=== PATIENT | female | born 1955 | race Caucasian/White ===

== ENCOUNTER 2017-12-31 13:15 | Inpatient (IN) | payer MEDICARE ==
[2017-12-31 13:32] VITALS: BMI 31.9
[2017-12-31] MEDS ORDERED: Sodium Chloride 0.9% 1,000 ML IV ONE (13:50)
[2017-12-31 14:17] LABS: BASO % 0.4 % (0.0-2.0); EOS # 0.2 K/uL (0.0-0.7); EOS % 1.5 % (0.0-4.0); HEMOGLOBIN 14.6 g/dL (11.0-16.0); LYMPH # 2.8 K/uL (1.0-4.3); LYMPH % 23.2 % (20.0-40.0); MEAN CELL VOLUME 88.4 fL (81.0-99.0); MEAN CORPUSCULAR HEMOGLOBIN 30.1 pg (27.0-31.0); MONO # 0.5 K/uL (0.0-0.8); MONO % 4.2 % (0.0-10.0); NEUT # 8.6 K/uL (1.8-7.0); NEUT % 70.7 % (50.0-75.0); NRBC % 0.1 % (0.0-2.0); RBC 4.85 Mil/uL (3.80-5.20); WHITE BLOOD COUNT 12.1 K/uL (4.8-10.8)
[2017-12-31 14:30] LABS: SQUAMOUS EPITHIAL 1 /hpf (0-5); URINE BACTERIA OCC (<OCC); URINE BILIRUBIN NEGATIVE (NEGATIVE); URINE BLOOD NEGATIVE (NEGATIVE); URINE CLARITY Hazy (Clear); URINE COLOR Yellow (YELLOW); URINE GLUCOSE (UA) 3+ mg/dL (Normal); URINE LEUKOCYTE ESTERASE 2+ Leu/uL (Negative); URINE PROTEIN 1+ mg/dL (NEGATIVE); URINE UROBILINOGEN NORMAL mg/dL (0.2-1.0)
[2017-12-31 14:33] LABS: ALB/GLOB RATIO 1.1 (1.0-2.1); ALBUMIN 4.4 g/dL (3.5-5.0); ALT/SGPT 16 U/L (9-52); AST/SGOT 21 U/L (14-36); BLOOD UREA NITROGEN 12 mg/dL (7-17); CALCIUM 9.7 mg/dl (8.6-10.4); GFR NON-AFRICAN AMERICAN > 60; LIPASE 962 U/L (23-300)
--- NOTE | 2017-12-31 14:40 | C.PDOC ---
History Of Present Illness 62-year-old female, presents to the emergency department with complaints of upper abdominal pain associated with vomiting. Patient states she was initially experiencing cough and cold symptoms. No fever. Time Seen by Provider: 12/31/17 13:35 Chief Complaint (Nursing): Abdominal Pain History Per: Patient History/Exam Limitations: no limitations Onset/Duration Of Symptoms: Days Current Symptoms Are (Timing): Still Present Severity: Moderate Location Of Pain/Discomfort: Epigastric Radiation Of Pain To:: Back Quality Of Discomfort: Dull, Aching Associated Symptoms: Nausea, Vomiting Recent travel outside of the [place]: No Past Medical History Reviewed: Historical Data, Nursing Documentation, Vital Signs Vital Signs: Last Vital Signs Temp 97.8 F 12/31/17 13:31 Pulse 97 H 12/31/17 13:31 Resp 18 12/31/17 13:31 BP 124/81 12/31/17 13:31 Pulse Ox 99 12/31/17 13:31 - Medical History PMH: Arthritis, Diabetes, Gall Bladder Disease (HX GALLSTONES CHOLECYSTECTOMY), HTN, Hypercholesterolemia Surgical History: Cholecystectomy, Coronary Stent - [facility] Procedures CONIZATION OF CERVIX (11/20/14) CYSTOSCOPY NEC (12/28/14) D & C NEC (11/20/14) LAPAROSCOP REMOVE OVARIES/TUBES (12/28/14) LAPAROSCOPIC RADICAL ABDOMINAL HYSTERECTOMY (12/28/14) LAPAROSCOPIC ROBOTIC ASSISTED PROCEDURE (12/28/14) RAD NODE DISSECTION NEC (12/28/14) Family History: States: No Known Family Hx - Social History Hx Alcohol Use: No Hx Substance Use: No - Immunization History Hx Tetanus Toxoid Vaccination: No Hx Influenza Vaccination: No Hx Pneumococcal Vaccination: No Review Of Systems Constitutional: Negative for: Fever, Chills Respiratory: Positive for: Cough Gastrointestinal: Positive for: Nausea, Vomiting, Abdominal Pain Physical Exam - Physical Exam Appears: Non-toxic, No Acute Distress Skin: Warm, Dry, No Rash Head: Atraumatic, Normacephalic Eye(s): bilateral: Normal Inspection, PERRL, EOMI Nose: Normal Oral Mucosa: Moist Lips: Normal Appearing Neck: Normal ROM Cardiovascular: Rhythm Regular, No Murmur Respiratory: Normal Breath Sounds, No Accessory Muscle Use Gastrointestinal/Abdominal: Soft, Tenderness (upper abdomen), No Guarding, No Rebound Back: Normal Inspection Extremity: Normal ROM, No Deformity Neurological/Psych: Oriented x3, Normal Speech Gait: Steady ED Course And Treatment - Laboratory Results Result Diagrams: 12/31/17 14:12 12/31/17 14:12 Lab Interpretation: Normal ECG: Interpreted By Me ECG Rhythm: Sinus Rhythm, L BBB ECG Interpretation: Abnormal Rate From EC O2 Sat by Pulse Oximetry: 99 Pulse Ox Interpretation: Normal (RA) - Other Rad No standard instances X-Ray: Viewed By Me, Read By Radiologist Interpretation: FINDINGS: CHEST: Heart size appears within normal limits. No focal consolidation, significant pleural effusion, or definite pneumothorax identified. ABDOMEN AND PELVIS: Nonobstructive bowel gas pattern. Moderate constipation. Right upper quadrant surgical clips. Degenerative changes of the spine. IMPRESSION: Moderate constipation. - CT Scan/US No standard instances CT/US Interpretation: FINDINGS: LIVER: Measures 17.2 cm in sagittal dimension. Echogenic liver may be seen in setting of hepatic parenchymal disease or fatty infiltration. No focal hepatic mass identified. The main portal vein appears patent with normal directional flow. No intrahepatic bile duct dilatation. GALLBLADDER: Cholecystectomy. COMMON BILE DUCT: Measures 7 mm. PANCREAS: Not well visualized. RIGHT KIDNEY: Measures 11.9 x 3.7 x 4.7cm. No obstructing calculus or hydronephrosis identified. LEFT KIDNEY: Measures 10.7 x 4.7 x 4.3cm. No obstructing calculus or hydronephrosis identified. SPLEEN: Measures approximately 8.2 cm. AORTA: Limited views appear unremarkable. IVC: Limited views appear unremarkable. OTHER FINDINGS: None. IMPRESSION: Echogenic liver may be seen in setting of hepatic parenchymal disease or fatty infiltration. Mildly dilated common bile duct in the setting of cholec ystectomy. Progress Note: Treated with IVF NSS, pepcid and zofran. On re-evaluation abdomen soft mild epigastric tenderness. Treated with morphine 4 mg IV Reassessment Condition: Improved - Physician Consult Information Physician Contacted: Marianna Geiger Outcome Of Conversation: admit Disposition Discussed With : Marianna Geiger Doctor Will See Patient In The: Hospital - Disposition Disposition: HOSPITALIZED Disposition Time: 17:00 Condition: STABLE - POA Present On Arrival: None - Clinical Impression Clinical Impression: Abdominal pain, Pancreatitis - Scribe Statement The provider has reviewed the documentation as recorded by the Scribe (Neetu Rivera) All medical record entries made by the Scribe were at my direction and personally dictated by me. I have reviewed the chart and agree that the record accurately reflects my personal performance of the history, physical exam, medical decision making, and the department course for this patient. I have also personally directed, reviewed, and agree with the discharge instructions and disposition. Decision To Admit - Pt Status Changed To: Hospital Disposition Of: Inpatient - Admit Certification Admit to Inpatient:: After my assessment, the patient will require hospitalization for at least two midnights. This is because of the severity of symptoms shown, intensity of services needed, and/or the medical risk in this patient being treated as an outpatient. - InPatient: Physician Admission Certification:: pancreatitis - . Bed Request Type: Regular Admitting Physician: Marianna Geiger Patient Diagnosis: Abdominal pain, Pancreatitis
--- NOTE | 2017-12-31 16:03 | US ---
HISTORY: R/O GB COMPARISON: None available. TECHNIQUE: Sonographic evaluation of the abdomen. FINDINGS: LIVER: Measures 17.2 cm in sagittal dimension. Echogenic liver may be seen in setting of hepatic parenchymal disease or fatty infiltration. No focal hepatic mass identified. The main portal vein appears patent with normal directional flow. No intrahepatic bile duct dilatation. GALLBLADDER: Cholecystectomy. COMMON BILE DUCT: Measures 7 mm. PANCREAS: Not well visualized. RIGHT KIDNEY: Measures 11.9 x 3.7 x 4.7cm. No obstructing calculus or hydronephrosis identified. LEFT KIDNEY: Measures 10.7 x 4.7 x 4.3cm. No obstructing calculus or hydronephrosis identified. SPLEEN: Measures approximately 8.2 cm. AORTA: Limited views appear unremarkable. IVC: Limited views appear unremarkable. OTHER FINDINGS: None. IMPRESSION: Echogenic liver may be seen in setting of hepatic parenchymal disease or fatty infiltration. Mildly dilated common bile duct in the setting of cholecystectomy.
--- NOTE | 2017-12-31 16:17 | RAD ---
Date of service: 12/31/2017 PROCEDURE: Radiographs of the chest and abdomen (obstructive series) HISTORY: Abd Pain COMPARISON: No prior. TECHNIQUE: AP radiograph of the chest, with upright and supine radiographs of the abdomen. FINDINGS: CHEST: Heart size appears within normal limits. No focal consolidation, significant pleural effusion, or definite pneumothorax identified. ABDOMEN AND PELVIS: Nonobstructive bowel gas pattern. Moderate constipation. Right upper quadrant surgical clips. Degenerative changes of the spine. IMPRESSION: Moderate constipation.
[2017-12-31] MEDS ORDERED: Morphine 4 MG/ML VIAL ONE (16:47)
[2017-12-31] MEDS: Dextrose 5%/0.45% NS 1,000 ML IV SCH (18:22)
[2017-12-31] MEDS ORDERED: Dextrose 50% SYRINGE Inj (50 ml) IV PRN (21:16)
[2017-12-31] MEDS ORDERED: Glucagon Recombinant 1 mg Inj IM PRN (21:16)
[2017-12-31] MEDS ORDERED: (Lantus) Insulin Glargine, Recombinant SC SCH (22:00)
[2017-12-31] MEDS: (Novolog) Insulin Aspart, Recombinant 100 u/ml 10 ml vial SC SCH (22:06)
[2017-12-31] MEDS: HYDROmorphone 1 mg/ml ISec IVP PRN (22:09)
[2018-01-01] MEDS: Dextrose 5%/0.45% NS 1,000 ML IV SCH ×3 (02:53→21:00)
[2018-01-01 07:20] LABS: AMYLASE 139 U/L (30-110); LIPASE 890 U/L (23-300)
[2018-01-01] MEDS: (Novolog) Insulin Aspart, Recombinant 100 u/ml 10 ml vial SC SCH ×4 (07:58→21:48)
[2018-01-01] MEDS: Belladonna-Phenobarbital PO SCH ×2 (11:00→17:18)
[2018-01-01] MEDS ORDERED: (Novolin R) Insulin Human Regular 100 units/ml vial SC SCH (11:30)
--- NOTE | 2018-01-01 12:17 | PN ---
DATE: 01/01/2018 LOCATION: 368, bed B. SUBJECTIVE: This 62-year-old female seen initially for GI consultation on 12/31/2017 as requested by the admitting medical team, reexamined again today with intermittent period of abdominal pain, some dysuria with mild , but no reported active bleeding. The entire chart is reviewed including but not limited to the most recent lab and radiology study results, current and the previous medication list, current and the previous medical events. Case discussed with the staff at length. Today's lab results showed blood glucose level of 209 and the patient had leukocytosis of 12.1 before with today's serum amylase 139 and decreased lipase to 890. Ultrasound of the abdomen, official report is seen with evidence of fatty infiltrate and mildly dilated common bile duct in the setting of cholecystectomy. PHYSICAL EXAMINATION: GENERAL: A 62-year-old female, awake, alert, oriented. VITAL SIGNS: Afebrile with pulse of 84, respiratory rate 20 to 22, blood pressure 134/70. HEENT: Showed pale, dry oral mucous membrane. Nonicteric sclerae. LUNGS: Few scattered crepitation. Decreased air entry at bases. HEART: Positive S1 and S2. ABDOMEN: Soft. Bowel sounds are present. No mass or organomegaly. No rebound tenderness or guarding. EXTREMITIES: Without significant edema, clubbing or cyanosis. NEUROLOGICAL: No reported new neurological deficits, sensory or motor. IMPRESSION: 1. Acute pancreatitis of unclear etiology that could be chemical pancreatitis versus viral pancreatitis. 2. Poorly-controlled diabetes mellitus. 3. Re-exacerbation of peptic ulcer disease, to rule out gastric versus duodenal ulcer. 4. Multiple past medical history including but not limited to osteoarthritis, hyperlipidemia, hypertension, status post coronary artery stent insertion due to coronary artery disease with status post cholecystectomy. 5. The possibility of poorly-controlled hyperlipidemia inducing acute pancreatitis was raised. SUGGESTIONS: 1. Agree with your plan. 2. Lipid profile. 3. Cancer markers. 4. Reglan IV. 5. Carafate liquid p.o. 6. The patient may need endoscopic evaluation of the upper GI tract if her pain persist. Further recommendation to follow. Thank you for letting me participate in your patient's case management. Alaa Salah-Mahesh, MD [facility] # [id number]
[2018-01-01 12:22] LABS: INR 1.2; PROTHROMBIN TIME 12.9 SECONDS (9.7-12.2)
[2018-01-01] MEDS: HYDROmorphone 1 mg/ml ISec IVP PRN (21:10)
[2018-01-02] MEDS: Dextrose 5%/0.45% NS 1,000 ML IV SCH ×5 (02:01→20:33)
[2018-01-02] MEDS: (Novolog) Insulin Aspart, Recombinant 100 u/ml 10 ml vial SC SCH ×4 (08:02→21:22)
[2018-01-02] MEDS: Belladonna-Phenobarbital PO SCH ×2 (09:13→17:17)
[2018-01-02 09:16] LABS: HDL CHOLESTEROL 47 mg/dL (30-70); LIPASE 712 U/L (23-300)
[2018-01-02 09:27] LABS: LDL CHOLESTEROL 53 mg/dL (0-129)
[2018-01-02] MEDS ORDERED: Influenza Vaccine 60 MCG/0.5 ML SYR (3 yr & up) IM ONE (10:00)
--- NOTE | 2018-01-02 13:42 | PN ---
DATE: 01/02/2018 LOCATION: 368, bed A. SUBJECTIVE: This is a 62-year-old female seen and examined in rounds early today, somewhat tolerating only clear liquid diet with intermittent periods of abdominal pain with mild nausea, but no vomiting. Most recent lab results today showed blood glucose level of 238, lipase and amylase levels are still pending. CA 19-9 was reported to be elevated to 41.9, but normal CEA and normal CA-125 antigen. No reported chest pain, palpitation, or evidence of active bleeding, but persistent dyspepsia. PHYSICAL EXAMINATION: GENERAL: A 62-year-old female. VITAL SIGNS: Afebrile, with pulse of 80, respiratory rate 20-22, blood pressure of 138/80. HEENT: Showed pale, dry oral mucous membranes. Nonicteric sclerae. LUNGS: Few scattered crepitations. Decreased air entry at bases. HEART: Positive S1 and S2. ABDOMEN: Soft, with midepigastric tenderness. No mass or organomegaly. NEUROLOGIC: No reported new neurological deficits, sensory or motor. IMPRESSION: 1. Acute pancreatitis, of unclear etiology that could be secondary to poorly controlled hyperlipidemia versus chemical pancreatitis. 2. Reexacerbation of peptic ulcer disease, to rule out gastric versus duodenal ulcer. 3. Reported history of cervical carcinoma. 4. Past medical history including but not limited to poorly controlled diabetes mellitus, osteoarthritis, status post cholecystectomy, hyperlipidemia, coronary artery disease, with status post cardiac stent insertion. 5. Elevated CA19-9 that could be secondary to her acute pancreatitis versus early stage of pancreatic carcinoma, less likely. SUGGESTIONS: 1. Agree with your plan. 2. Follow up with serum lipase, amylase level. 3. Endoscopic evaluation of the upper GI tract to rule out possible gastric versus duodenal ulcer in addition to the patient's clinical presentation of her acute pancreatitis. 4. Further recommendations to follow and her last colonoscopy was done over 6-1/2 to 7 years ago according to her statement. Rika Mckenzie MD
[2018-01-02] MEDS ORDERED: Benzocaine/Menthol (Cepacol) Lozenge MT PRN (20:47)
[2018-01-03] MEDS: Dextrose 5%/0.45% NS 1,000 ML IV SCH ×3 (02:15→09:34)
[2018-01-03] MEDS: (Novolog) Insulin Aspart, Recombinant 100 u/ml 10 ml vial SC SCH ×4 (07:49→21:15)
--- NOTE | 2018-01-03 08:06 | HP ---
HISTORY OF PRESENT ILLNESS: The patient was admitted to the hospital with chief complaint of abdominal pain . The patient came to the ER found to have pancreatitis, advised admission. The patient has a history of cholecystectomy several years ago, insulin dependent diabetes, hypertension, hypercholesterolemia. PHYSICAL EXAMINATION: GENERAL: The patient is awake, alert, and oriented. VITAL SIGNS: Temperature 98 and pulse 90. HEENT: Within normal limits. NECK: Supple. HEART: Regular. CHEST: Symmetrical. ABDOMEN: Soft. EXTREMITIES: No edema. ASSESSMENT AND PLAN: The patient suffers from pancreatitis. The patient advised bed rest, n.p.o. Marianna Geiger MD
[2018-01-03] MEDS: Belladonna-Phenobarbital PO SCH ×2 (09:26→17:22)
[2018-01-03] MEDS ORDERED: Pneumococcal 23-Valent Vaccine IM ONE (10:00)
--- NOTE | 2018-01-03 10:09 | CARD ---
APPROVED REPORT Date of service: 12/31/2017 EKG Measurement Heart [id number] <Conclusion> Sinus rhythm with fusion complexes Left axis deviation Left bundle branch block Abnormal ECG
[2018-01-03] MEDS ORDERED: Propofol 10 mg/ml Inj (20 ML) ONE (10:24)
[2018-01-03 10:34] LABS: SQUAMOUS EPITHIAL < 1 /hpf (0-5); URINE BILIRUBIN NEGATIVE (NEGATIVE); URINE BLOOD NEGATIVE (NEGATIVE); URINE CLARITY Clear (Clear); URINE COLOR Straw (YELLOW); URINE GLUCOSE (UA) NORMAL (Normal); URINE LEUKOCYTE ESTERASE NEG Leu/uL (Negative); URINE PROTEIN NEGATIVE (NEGATIVE); URINE UROBILINOGEN NORMAL mg/dL (0.2-1.0)
[2018-01-03 11:29] VITALS: RESP 20
[2018-01-03 11:39] LABS: AMYLASE 81 U/L (30-110); LIPASE 438 U/L (23-300)
--- NOTE | 2018-01-03 15:04 | CP.PCM.PN ---
Subjective - Date & Time of Evaluation Date of Evaluation: 01/03/18 Time of Evaluation: 09:15 - Subjective Subjective: PGY2 Medicine Note for Dr. Geiger Patient seen and examined this morning at bedside. No acute events overnight. Patient states that she is feeling better today with only abdominal soreness in the epigastric region. She is currently NPO for an EGD scheduled for this morning. She has not had a bowel movement but also reports that she has not eaten in 5 days. She is passing flatus. She has no complaints or than abdominal soreness, denying fevers, chills, nausea, vomiting, lightheadedness or dizziness. Objective - Vital Signs/Intake and Output Vital Signs (last 24 hours): Temp Pulse Resp BP Pulse Ox 97.6 F 74 20 154/80 H 97 01/03/18 11:27 01/03/18 11:27 01/03/18 11:27 01/03/18 11:27 01/03/18 11:27 Intake and Output: 01/03/18 01/03/18 06:59 18:59 Intake Total 1150 150 Balance 1150 150 - Medications Medications: Current Medications Belladonna/Phenobarbital () 1 tab PO BID ARIAN Last Admin: 01/03/18 09:26 Dose: Not Given Benzocaine/Menthol (Cepacol Sore Throat) 1 barb MT TID PRN PRN Reason: SORE THROAT Last Admin: 01/02/18 21:22 Dose: 1 barb Dextrose (Dextrose 50% Inj) 0 ml IV STAT PRN; Protocol PRN Reason: Hypoglycemia Protocol Dextrose (Glutose 15) 0 gm PO ONCE PRN; Protocol PRN Reason: Hypoglycemia Protocol Fluconazole (Diflucan) 100 mg PO DAILY ARIAN; Protocol Last Admin: 01/03/18 11:49 Dose: 100 mg Glucagon (Glucagen Diagnostic Kit) 0 mg IM STAT PRN; Protocol PRN Reason: Hypoglycemia Protocol Heparin Sodium (Porcine) (Heparin) 5,000 units SC Q12 ARIAN Last Admin: 01/03/18 09:26 Dose: Not Given Hydromorphone HCl (Dilaudid) 1 mg IVP Q4H PRN PRN Reason: Pain, severe (8-10) Last Admin: 01/01/18 21:10 Dose: 1 mg Dextrose/Sodium Chloride (Dextrose 5%/0.45% Ns 1000 Ml) 1,000 mls @ 125 mls/hr IV .Q8H [facility] Last Admin: 01/03/18 09:34 Dose: Not Given Dextrose (Dextrose 5% In Water 1000 Ml) 1,000 mls @ 0 mls/hr IV .Q0M PRN; Protocol PRN Reason: Hypoglycemia Protocol Ceftriaxone Sodium 1 gm/ (Sodium Chloride) 100 mls @ 100 mls/hr IVPB DAILY [facility]; Protocol Last Admin: 01/03/18 11:50 Dose: 100 mls/hr Insulin Aspart (Novolog) 0 unit SC ACHS [facility]; Protocol Last Admin: 01/03/18 11:51 Dose: 2 unit Insulin Glargine (Lantus) 20 unit SC HS [facility] Last Admin: 12/31/17 22:07 Dose: Not Given Metoclopramide HCl (Reglan) 5 mg IVP Q8H PRN PRN Reason: Nausea/Vomiting Pantoprazole Sodium (Protonix Inj) 40 mg IVP DAILY [facility] Last Admin: 01/03/18 09:27 Dose: 40 mg Sucralfate (Carafate Tab) 1 gm PO ACBHS [facility] Last Admin: 01/03/18 07:49 Dose: Not Given - Labs Labs: 12/31/17 14:12 12/31/17 14:12 PT 12.9 SECONDS (9.7-12.2) H 01/01/18 11:50 INR 1.2 01/01/18 11:50 APTT 34 SECONDS (21-34) 01/01/18 11:50 - Constitutional Appears: Non-toxic, No Acute Distress - Head Exam Head Exam: NORMOCEPHALIC - Eye Exam Eye Exam: Normal appearance - ENT Exam ENT Exam: Mucous Membranes Moist - Neck Exam Neck Exam: absent: Lymphadenopathy - Respiratory Exam Respiratory Exam: Clear to Ausculation Bilateral, NORMAL BREATHING PATTERN. absent: Accessory Muscle Use, Rales, Rhonchi, Wheezes, Respiratory Distress - Cardiovascular Exam Cardiovascular Exam: REGULAR RHYTHM, +S1 - GI/Abdominal Exam GI & Abdominal Exam: Soft, Tenderness (mild epigastric), Normal Bowel Sounds. absent: Distended, Firm, Guarding, Rigid - Extremities Exam Extremities Exam: absent: Calf Tenderness, Pedal Edema - Neurological Exam Neurological Exam: Alert, Awake, Oriented x3 - Psychiatric Exam Psychiatric exam: Normal Affect, Normal Mood - Skin Skin Exam: Dry, Warm Assessment and Plan - Assessment and Plan (Free Text) Plan: Pancreatitis GI consulted, Dr. Aragon * NPO for EGD scheduled for this morning. * LA Grade B Candidiasis esophagitis. * Diflucan 100mg PO daily for 2 weeks * Medium-sized hiatral hernia. * Erythematous mucosa in the stomach. * Prilosec (Omeprazole) 40mg PO daily for 8 weeks. * Normal Examined duodenum. * Follow up with Dr. Aragon in 6 weeks. Abd Obstruction Series (12/31): * Moderate constipation. Abd US (01/01): * Echogenic liver may be seen in setting of hepatic parenchymal disease or fatty infiltration. * Mildly dilated common bile duct in the setting of cholecystectomy. Lipase 438 (was 962 upon admission on 12/31) Heart Healthy Diet Medications: * Cepacol 1 barb MT TID * Donnatol 1tab PO BID * Dilaudid 1mg IVP 4h prn * Reglan 5mg IVP q8h prn * Sucralfate 1gm PO ACBHS Candidiasis Esophagitis Seen on EGD on 01/03/18 Medications * Diflucan 100mg PO daily for 2 weeks (started on 01/03, finish on 01/16) Urinary Tract Infection UA (12/31): Nitrates positive, Leuko Clotilde 2+ (treated with 1 dose of Macrobid in ED) repeat UA (01/03): unremarkable Urine culture pending started on Rocephin 1gm IVPB daily (started on 01/03) Prophylactic Care Heparin 5,000u SC q12h Protonix 40mg IVP daily All medical management per Dr. Juanjo Ansari Nick PGY2
--- NOTE | 2018-01-04 06:27 | CON ---
DATE: 12/31/[address] Mckenzie to Dr. Marianna Geiger. I was called for GI consultation by the admitting medical team. The patient is seen and fully examined on 12/31/[address] Geiegr with the staff in the floor. The entire chart is reviewed including but not limited to most recent lab and radiology study results, current and the previous medication list, current and the previous medical events, allergy to medication list as well as all the available current and the previous medical records. HISTORY OF PRESENT ILLNESS: This is a 62-year-old female who was admitted to the hospital due to severe midepigastric, upper abdominal and midabdominal line pain with recurrent episodes of nausea, vomiting with persistent dyspepsia, generalized weakness and malaise associated with nasal congestion and nonproductive cough. Denied any known recent complaint of chest pain, palpitation, significant shortness of breath or active bleeding, but persistent dyspepsia. PAST MEDICAL HISTORY: Including mainly but not limited to, 1. Diabetes mellitus. 2. Hypertension. 3. Hyperlipidemia. 4. Osteoarthritis. 5. Status post cholecystectomy due to cholelithiasis. 6. Coronary artery disease with status post cardiac stent insertion. 7. Reported radical abdominal hysterectomy about 3 years ago. 8. Last colonoscopy as per the patient's statement was done over 8-10 years ago. FAMILY HISTORY: Unknown. SOCIAL HISTORY: Denied any known history of cigarette smoking or alcohol intake recently. ALLERGY TO MEDICATION: UNCLEAR. CURRENT MEDICATIONS: Post admission medication lists were reviewed. LABORATORY DATA: Initial blood workup post admission showed white blood cells of 12.1 with normal hemoglobin and hematocrit, but blood glucose level of 350 with elevated serum, lipase and amylase level, indicative of acute pancreatitis. IMAGING STUDIES: Initial radiology study results was indicative of fatty infiltrate of the liver with mildly dilated common bile duct post cholecystectomy. PHYSICAL EXAMINATION: GENERAL: A 62-year-old female complaining in any of midepigastric abdominal pain, abdominal distention, generalized weakness and malaise. VITAL SIGNS: Afebrile with pulse of 94, respiratory rate 20 to 22, blood pressure 120/78. HEENT: Showed pale, dry oral mucous membrane. Nonicteric sclerae. LUNGS: Few scattered crepitation. Decreased air entry at bases. HEART: Positive S1 and S2 with increased rate. ABDOMEN: Soft with diffuse tenderness but mainly in the midepigastric and midabdominal line. No mass or organomegaly. No rebound tenderness or guarding. RECTAL: The patient refused. EXTREMITIES: Without significant clubbing, cyanosis or edema. NEUROLOGICAL: No reported new neurological deficits, sensory or motor. IMPRESSION: 1. Acute pancreatitis of unclear etiology that could be secondary to viral pancreatitis versus hyperlipidemia induced. 2. Re-exacerbation of peptic ulcer disease to rule out gastric versus duodenal ulcer. 3. Multiple past medical history as mentioned above. 4. Poorly-controlled diabetes mellitus with possible diabetic gastroparesis. SUGGESTIONS: 1. Agree with your plan. 2. Keep n.p.o. until serum lipase, amylase level normal or near normal. 3. MRCP if the patient's symptoms persist. 4. Cancer markers. 5. Rehydration with pink color medication. 6. Proton pump inhibitors IV. 7. Endoscopic evaluation of the upper GI tract if the patient's symptoms persist. 8. Further recommendation to follow. Lipids profile to be ordered. Thank you for letting me participate in your patient's case management. Rika Mckenzie MD
[2018-01-04 07:24] LABS: BASO # 0.1 K/uL (0.0-0.2); BASO % 0.8 % (0.0-2.0); EOS # 0.2 K/uL (0.0-0.7); LYMPH # 2.9 K/uL (1.0-4.3); LYMPH % 34.9 % (20.0-40.0); MEAN CELL VOLUME 87.5 fL (81.0-99.0); MEAN CORPUSCULAR HEMOGLOBIN 30.2 pg (27.0-31.0); MEAN CORPUSCULAR HGB CONC 34.5 g/dL (33.0-37.0); MEAN PLATELET VOLUME 8.9 fL (7.2-11.7); MONO # 0.6 K/uL (0.0-0.8); MONO % 6.9 % (0.0-10.0); NEUT # 4.6 K/uL (1.8-7.0); NEUT % 55.4 % (50.0-75.0); NRBC % 0.1 % (0.0-2.0); RBC 4.31 Mil/uL (3.80-5.20); RED CELL DISTRIBUTION WIDTH 13.9 % (11.5-14.5); WHITE BLOOD COUNT 8.3 K/uL (4.8-10.8)
[2018-01-04 08:09] LABS: ALB/GLOB RATIO 1.1 (1.0-2.1); ALBUMIN 3.7 g/dL (3.5-5.0); ALT/SGPT 26 U/L (9-52); AST/SGOT 17 U/L (14-36); BLOOD UREA NITROGEN 7 mg/dL (7-17); CALCIUM 9.1 mg/dl (8.6-10.4); GFR NON-AFRICAN AMERICAN > 60
[2018-01-04] MEDS: (Novolog) Insulin Aspart, Recombinant 100 u/ml 10 ml vial SC SCH ×2 (08:14→11:48)
[2018-01-04 08:19] VITALS: BP 150/83; PULSE 84; TEMP 97.6; O2SAT 97
--- NOTE | 2018-01-04 09:20 | CP.PCM.PN ---
Subjective - Date & Time of Evaluation Date of Evaluation: 01/04/18 Time of Evaluation: 09:18 - Subjective Subjective: PGY2 Medicine Note for Dr. Geiger Patient seen and examined this morning at bedside. No acute events overnight. Patient is feeling back to baseline today with mild abdominal soreness. She is tolerating her diet and reports eating a [employer] sub for dinner last night. She has no abdominal pain and would like to go home. She is passing flatus. She has no complaints or than abdominal soreness, denying fevers, chills, nausea, vomiting, lightheadedness or dizziness. Objective - Vital Signs/Intake and Output Vital Signs (last 24 hours): Temp Pulse Resp BP Pulse Ox 97.6 F 84 20 150/83 97 01/04/18 08:18 01/04/18 08:18 01/04/18 08:18 01/04/18 08:18 01/04/18 08:18 Intake and Output: 01/04/18 01/04/18 06:59 18:59 Intake Total 300 Balance 300 - Medications Medications: Current Medications Belladonna/Phenobarbital () 1 tab PO BID ARIAN Last Admin: 01/03/18 17:22 Dose: 1 tab Benzocaine/Menthol (Cepacol Sore Throat) 1 barb MT TID PRN PRN Reason: SORE THROAT Last Admin: 01/02/18 21:22 Dose: 1 barb Dextrose (Dextrose 50% Inj) 0 ml IV STAT PRN; Protocol PRN Reason: Hypoglycemia Protocol Dextrose (Glutose 15) 0 gm PO ONCE PRN; Protocol PRN Reason: Hypoglycemia Protocol Fluconazole (Diflucan) 100 mg PO DAILY ARIAN; Protocol Last Admin: 01/03/18 11:49 Dose: 100 mg Glucagon (Glucagen Diagnostic Kit) 0 mg IM STAT PRN; Protocol PRN Reason: Hypoglycemia Protocol Heparin Sodium (Porcine) (Heparin) 5,000 units SC Q12 ARIAN Last Admin: 01/03/18 21:20 Dose: Not Given Hydromorphone HCl (Dilaudid) 1 mg IVP Q4H PRN PRN Reason: Pain, severe (8-10) Last Admin: 01/01/18 21:10 Dose: 1 mg Dextrose (Dextrose 5% In Water 1000 Ml) 1,000 mls @ 0 mls/hr IV .Q0M PRN; Protocol PRN Reason: Hypoglycemia Protocol Ceftriaxone Sodium 1 gm/ (Sodium Chloride) 100 mls @ 100 mls/hr IVPB DAILY [facility]; Protocol Last Admin: 01/03/18 11:50 Dose: 100 mls/hr Insulin Aspart (Novolog) 0 unit SC ACHS [facility] [place]; Protocol Last Admin: 01/04/18 08:14 Dose: 3 unit Insulin Glargine (Lantus) 20 unit SC HS [facility] [place] Last Admin: 12/31/17 22:07 Dose: Not Given Metoclopramide HCl (Reglan) 5 mg IVP Q8H PRN PRN Reason: Nausea/Vomiting Pantoprazole Sodium (Protonix Inj) 40 mg IVP DAILY [facility] [place] Last Admin: 01/03/18 09:27 Dose: 40 mg Sucralfate (Carafate Tab) 1 gm PO ACBHS [facility] [place] Last Admin: 01/04/18 08:14 Dose: 1 gm - Labs Labs: 01/04/18 06:55 01/04/18 06:55 PT 12.9 SECONDS (9.7-12.2) H 01/01/18 11:50 INR 1.2 01/01/18 11:50 APTT 34 SECONDS (21-34) 01/01/18 11:50 - Additional Findings Additional findings: - Constitutional Appears: Non-toxic, No Acute Distress - Head Exam Head Exam: NORMOCEPHALIC - Eye Exam Eye Exam: Normal appearance - ENT Exam ENT Exam: Mucous Membranes Moist - Neck Exam Neck Exam: absent: Lymphadenopathy - Respiratory Exam Respiratory Exam: Clear to Ausculation Bilateral, NORMAL BREATHING PATTERN. absent: Accessory Muscle Use, Rales, Rhonchi, Wheezes, Respiratory Distress - Cardiovascular Exam Cardiovascular Exam: REGULAR RHYTHM, +S1 - GI/Abdominal Exam GI & Abdominal Exam: Soft, Normal Bowel Sounds. absent: Distended, Tenderness, Firm, Guarding, Rigid - Extremities Exam Extremities Exam: absent: Calf Tenderness, Pedal Edema - Neurological Exam Neurological Exam: Alert, Awake, Oriented x3 - Psychiatric Exam Psychiatric exam: Normal Affect, Normal Mood - Skin Skin Exam: Dry, Warm Assessment and Plan - Assessment and Plan (Free Text) Plan: Pancreatitis GI consulted, Dr. Aragon * NPO for EGD scheduled for this morning. * LA Grade B Candidiasis esophagitis. * Diflucan 100mg PO daily for 2 weeks * Medium-sized hiatral hernia. * Erythematous mucosa in the stomach. * Prilosec (Omeprazole) 40mg PO daily for 8 weeks. * Normal Examined duodenum. * Follow up with Dr. Aragon in 6 weeks. Abd Obstruction Series (12/31): * Moderate constipation. Abd US (01/01): * Echogenic liver may be seen in setting of hepatic parenchymal disease or fatty infiltration. * Mildly dilated common bile duct in the setting of cholecystectomy. Lipase 438 (was 962 upon admission on 12/31) Heart Healthy Diet Medications: * Cepacol 1 barb MT TID * Donnatol 1tab PO BID * Dilaudid 1mg IVP 4h prn * Reglan 5mg IVP q8h prn * Sucralfate 1gm PO ACBHS Candidiasis Esophagitis Seen on EGD on 01/03/18 Medications * Diflucan 100mg PO daily for 2 weeks (started on 01/03, finish on 01/16) Urinary Tract Infection UA (12/31): Nitrates positive, Leuko Clotilde 2+ (treated with 1 dose of Macrobid in ED) repeat UA (01/03): unremarkable Urine culture pending started on Rocephin 1gm IVPB daily (started on 01/03) Prophylactic Care Heparin 5,000u SC q12h Protonix 40mg IVP daily DISPO: Patient discharged home on 01/04/18 with the following instructions. Patient is to be discharge home per Dr. Geiger. Patient is to follow up with his primary care physician within 2-3 days. Patient is to follow up with Dr. Aragon in his office in 6 weeks. Please call schedule an appointment. Patient is to STOP taking Lipitor. Patient is to take Diflucan (fluconazole) 100mg by mouth once daily for 2 weeks. (prescription for 12 day supply) - Prilosec (omeprazole) 40mg by mouth once daily for 8 weeks. (prescription for 8 week supply) - 1 tab by mouth twice daily. (prescription for one month supply) - Sucralfate 1gm mouth before breakfast and before bedtime. (prescription for one month supply) Patient is to continue her medications as previously prescribed by her primary care physician. If patient experiences any new or worsening symptoms, please go to the nearest emergency department. All medical management per Dr. Juanjo Ansari Nick PGY2
[2018-01-04] MEDS: Belladonna-Phenobarbital PO SCH (09:41)
--- NOTE | 2018-01-04 13:00 | PN ---
DATE: 01/04/2018 LOCATION: 368, bed A. SUBJECTIVE: This is a 62-year-old female seen and examined in rounds without any significant clinical changes post upper endoscopy, appeared to be awake, alert, oriented with reported less abdominal pain. No reported active bleeding, but period of nausea and dyspepsia. No chest pain, palpitation or reported significant shortness of breath. The entire chart is reviewed including but not limited to the most recent lab and radiology study results, current and the previous medication list, current and the previous medical events and today's lab result showed blood glucose level of 243 with the latest amylase 81 and a lipase of 438. The patient tolerating oral intake well so far. It has to be mentioned that the patient refusing any colonoscopy despite her latest colonoscopy was several years ago. PHYSICAL EXAMINATION: GENERAL: A 62-year-old female, awake, alert and oriented. VITAL SIGNS: Afebrile with pulse of 80, respiratory rate 20 to 22, but increased blood pressure to 160/84. HEENT: Showed pale, dry oral mucous membrane. Nonicteric sclerae. LUNGS: Few scattered crepitation. Decreased air entry at bases. HEART: Positive S1 and S2. ABDOMEN: Soft with slight generalized tenderness. No mass or organomegaly. No rebound tenderness or guarding. EXTREMITIES: Without significant edema, clubbing or cyanosis. NEUROLOGICAL: No reported new neurological deficits, sensory or motor. IMPRESSION: 1. Acute pancreatitis, improving gradually. 2. Reported history of cervical carcinoma. 3. Re-exacerbation of peptic ulcer disease by recent upper endoscopy with evidence of esophageal candidiasis. 4. Elevated CA19-9. 5. Multiple past medical history including but not limited to osteoarthritis, poorly-controlled diabetes mellitus, hyperlipidemia with status post cholecystectomy. 6. New episode of hypertension through this admission. SUGGESTIONS: 1. Continue current management. 2. Advance diet. 3. MRCP before discharging home due to the elevated CA19-9. 4. Further recommendation to follow. Rika Mckenzie MD
--- NOTE | 2018-01-05 06:25 | DS ---
The patient chief complaint of weakness, fatigue, tiredness, abdominal pain, found to have pancreatitis. The patient was taking Lipitor. The patient's CAT scan of abdomen done. IV fluid. Endoscopy done, gastritis. Discharged. Advised to stop taking Lipitor for now until further primary care doctor. Marianna Geiger MD
== END 2018-01-04 13:10 | disposition home or self-care (01) | DRG 439 ==
LOC: C.ER 13:15 → C.9E 16:15 → C.3T 16:36
PROVIDERS: ADMIT Internal Medicine Pulmonary Disease; ATTEND Internal Medicine Pulmonary Disease
PROC: 0DB68ZX Excision of Stomach, Via Natural or Artificial Opening Endoscopic, Diagnostic (ICD-10-PCS; principal; 2018-01-03 10:16)
DX: K85.90 Acute pancreatitis without necrosis or infection, unspecified (principal); B37.81 Candidal esophagitis; E11.65 Type 2 diabetes mellitus with hyperglycemia; K29.70 Gastritis, unspecified, without bleeding; K83.8 Other specified diseases of biliary tract; I10 Essential (primary) hypertension; I25.10 Atherosclerotic heart disease of native coronary artery without angina pectoris; J00 Acute nasopharyngitis [common cold]; E78.5 Hyperlipidemia, unspecified; E78.00 Pure hypercholesterolemia, unspecified; M19.90 Unspecified osteoarthritis, unspecified site; Z79.4 Long term (current) use of insulin; Z95.5 Presence of coronary angioplasty implant and graft; Z85.41 Personal history of malignant neoplasm of cervix uteri; Z90.710 Acquired absence of both cervix and uterus; Z90.49 Acquired absence of other specified parts of digestive tract

== ENCOUNTER 2018-03-08 08:17 | Emergency (ER) | payer MEDICARE ==
[2018-03-08 08:17] VITALS: BMI 31.9
[2018-03-08] MEDS ORDERED: Sodium Chloride 0.9% 1,000 ML IV STA (08:57)
--- NOTE | 2018-03-08 09:17 | C.PDOC ---
History Of Present Illness 62 y/o female with history of Pancreatitis presents to ED with c/o epigastric abdominal pain for 2 days associated with nausea radiating to back. Patient reports pain moderate to severe constant pain and boring in character. Patient states symptoms similar to prior pancreatitis and denies fever, chills, chest pain, sob, vomiting or recent travel. No other complaints at this time. Time Seen by Provider: 03/08/18 08:36 Chief Complaint (Nursing): Abdominal Pain History Per: Patient History/Exam Limitations: no limitations Onset/Duration Of Symptoms: Days Current Symptoms Are (Timing): Still Present Location Of Pain/Discomfort: Epigastric Past Medical History Reviewed: Historical Data, Nursing Documentation, Vital Signs Vital Signs: Last Vital Signs Temp 97.5 F L 03/08/18 08:43 Pulse 98 H 03/08/18 08:43 Resp 18 03/08/18 08:43 BP 151/88 H 03/08/18 08:43 Pulse Ox 95 03/08/18 08:43 - Medical History PMH: Arthritis, Diabetes, Gall Bladder Disease (HX GALLSTONES CHOLECYSTECTOMY), HTN, Hypercholesterolemia Surgical History: Cholecystectomy, Coronary Stent - [facility] Procedures CONIZATION OF CERVIX (11/20/14) CYSTOSCOPY NEC (12/28/14) D & C NEC (11/20/14) EXCISION OF STOMACH, ENDO, DIAGN (12/31/17) LAPAROSCOP REMOVE OVARIES/TUBES (12/28/14) LAPAROSCOPIC RADICAL ABDOMINAL HYSTERECTOMY (12/28/14) LAPAROSCOPIC ROBOTIC ASSISTED PROCEDURE (12/28/14) RAD NODE DISSECTION NEC (12/28/14) Family History: States: No Known Family Hx - Social History Hx Alcohol Use: No Hx Substance Use: No - Immunization History Hx Tetanus Toxoid Vaccination: No Hx Influenza Vaccination: No Hx Pneumococcal Vaccination: No Review Of Systems Constitutional: Negative for: Fever, Chills Cardiovascular: Negative for: Chest Pain Respiratory: Negative for: Cough, Shortness of Breath Gastrointestinal: Positive for: Nausea, Abdominal Pain. Negative for: Vomiting, Diarrhea Musculoskeletal: Positive for: Back Pain Physical Exam - Physical Exam Additional Physical Exam Comments: Constitutional: No acute distress. Head: Normocephalic. Atraumatic. Eyes: PERRL. ENT: Moist mucous membranes. Neck: Supple. Cardiovascular: Regular rate. Radial pulse 2+ bilaterally. Chest: No tenderness. Respiratory: Clear to auscultation bilaterally. GI: Soft. Epigastric Tenderness with guarding. Back: No CVA tenderness Musculoskeletal: No tenderness or swelling of extremities. Skin: No rash. Neurologic: Alert, no focal deficit. ED Course And Treatment - Laboratory Results Result Diagrams: 03/08/18 09:24 03/08/18 09:24 O2 Sat by Pulse Oximetry: 95 (RA) Pulse Ox Interpretation: Normal Medical Decision Making Medical Decision Making: Plan: UA, Blood work ordered. Morphine, Zofran and IV fluids administered. CT IMPRESSION: Cholecystectomy. Hysterectomy. The appendix resides midline and appears within normal limits of caliber. No secondary signs of acute appendicitis. Cecum is noted in the left abdomen. No evidence of bowel obstruction. Mild left adrenal gland hypertrophy. Labs unremarkable. Lipase negative. Vitals unremarkable. Will discharge home, f/u PMD, instructed to return to ED for worsening pain or vomiting. Disposition - Disposition Disposition: HOME/ ROUTINE Disposition Time: 12:18 Condition: STABLE Prescriptions: Ciprofloxacin [Cipro] 500 mg PO BID #14 tab Famotidine/Ca Carb/Mag Hydrox [Pepcid Complete Tablet Chew] 1 each PO BID #28 tab.chew Instructions: Acute Abdomen (Belly Pain) Forms: [facility] (Irish) - Clinical Impression Clinical Impression: Abdominal pain - Scribe Statement The provider has reviewed the documentation as recorded by the Candis Almendarez All medical record entries made by the Raheemibgonzalez were at my direction and personally dictated by me. I have reviewed the chart and agree that the record accurately reflects my personal performance of the history, physical exam, medical decision making, and the department course for this patient. I have also personally directed, reviewed, and agree with the discharge instructions and disposition.
[2018-03-08 09:28] LABS: BASO # 0.1 K/uL (0.0-0.2); BASO % 1.1 % (0.0-2.0); EOS # 0.1 K/uL (0.0-0.7); EOS % 1.5 % (0.0-4.0); HEMOGLOBIN 14.7 g/dL (11.0-16.0); LYMPH # 2.7 K/uL (1.0-4.3); LYMPH % 28.2 % (20.0-40.0); MEAN CELL VOLUME 86.8 fL (81.0-99.0); MEAN CORPUSCULAR HEMOGLOBIN 29.4 pg (27.0-31.0); MEAN CORPUSCULAR HGB CONC 33.8 g/dL (33.0-37.0); MEAN PLATELET VOLUME 8.6 fL (7.2-11.7); MONO # 0.5 K/uL (0.0-0.8); MONO % 5.3 % (0.0-10.0); NEUT # 6.1 K/uL (1.8-7.0); NEUT % 63.9 % (50.0-75.0); WHITE BLOOD COUNT 9.5 K/uL (4.8-10.8)
[2018-03-08 09:31] LABS: URINE BILIRUBIN NEGATIVE (NEGATIVE); URINE CLARITY Clear (Clear); URINE COLOR YELLOW (YELLOW); URINE GLUCOSE (UA) Normal (Normal)
[2018-03-08 09:32] LABS: SQUAMOUS EPITHIAL 4 /hpf (0-5); URINE BLOOD NEGATIVE (NEGATIVE); URINE LEUKOCYTE ESTERASE NEGATIVE Leu/uL (Negative); URINE PROTEIN NEGATIVE (NEGATIVE); URINE UROBILINOGEN Normal mg/dL (0.2-1.0)
[2018-03-08 09:33] LABS: URINE BACTERIA OCC (<OCC)
[2018-03-08 09:46] LABS: ALB/GLOB RATIO 1.3 (1.0-2.1); ALBUMIN 4.5 g/dL (3.5-5.0); ALT/SGPT 28 U/L (9-52); AST/SGOT 33 U/L (14-36); BLOOD UREA NITROGEN 11 mg/dL (7-17); CALCIUM 9.5 mg/dl (8.6-10.4); GFR NON-AFRICAN AMERICAN > 60; LIPASE 74 U/L (23-300)
[2018-03-08 11:21] VITALS: RESP 16
[2018-03-08] MEDS ORDERED: Iodixanol 320 MG/ML 100 ML BOTTLE IV ONE (11:32)
--- NOTE | 2018-03-08 12:20 | CT ---
Date of service: 03/08/2018 PROCEDURE: CT Abdomen and Pelvis with contrast HISTORY: abd pain COMPARISON: Abdominal ultrasound performed 12/31/17 TECHNIQUE: Contrast dose: 100 mL Visipaque IV Radiation dose: Total exam DLP = 679.29 mGy-cm. This CT exam was performed using one or more of the following dose reduction techniques: Automated exposure control, adjustment of the mA and/or kV according to patient size, and/or use of iterative reconstruction technique. FINDINGS: LOWER THORAX: No visible consolidation, pleural effusion, or pneumothorax. LIVER: Unremarkable. GALLBLADDER AND BILE DUCTS: Cholecystectomy. PANCREAS: Unremarkable. SPLEEN: Unremarkable. ADRENALS: Mild left adrenal gland hypertrophy. The right adrenal gland appears unremarkable. KIDNEYS AND URETERS: The kidneys enhance symmetrically. No hydronephrosis or obstructing calculus identified. VASCULATURE: No aortic aneurysm. Dense atherosclerotic calcifications/mural plaque present. BOWEL: Stomach is nondistended. Lack of oral contrast limits evaluation for bowel pathology. Bowel loops appear within normal limits of caliber without evidence of obstruction. The cecum is seen in the left abdomen. APPENDIX: Appendix resides midline and appears within normal limits of caliber. No secondary signs of acute appendicitis. PERITONEUM: No significant free fluid. No definite free air. LYMPH NODES: No bulky adenopathy identified. BLADDER: Urinary bladder distension. REPRODUCTIVE: Uterus is absent consistent with hysterectomy. BONES: Degenerative changes of the spine. OTHER FINDINGS: None. IMPRESSION: Cholecystectomy. Hysterectomy. The appendix resides midline and appears within normal limits of caliber. No secondary signs of acute appendicitis. Cecum is noted in the left abdomen. No evidence of bowel obstruction. Mild left adrenal gland hypertrophy.
[2018-03-08 12:28] VITALS: O2SAT 95
[2018-03-08 12:59] VITALS: BP 154/89; PULSE 106; TEMP 97.6
== END 2018-03-08 12:59 | disposition home or self-care (01) ==
LOC: C.ER 08:17
DX: R10.9 Unspecified abdominal pain (principal); E11.9 Type 2 diabetes mellitus without complications; I10 Essential (primary) hypertension; E78.00 Pure hypercholesterolemia, unspecified; Z90.49 Acquired absence of other specified parts of digestive tract; Z95.5 Presence of coronary angioplasty implant and graft; F17.210 Nicotine dependence, cigarettes, uncomplicated
CPT/HCPCS: 74177; 80053; 81001; 82948; 83690; 85025; 87086; 87181; 96361; 96374; 96375; 99285; J2270; J2405; J7030; Q9967